=== PATIENT | male | born 2005 | race African-American/Black ===

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

== ENCOUNTER 2023-02-07 21:32 | Emergency (ER) | payer BC ==
[2023-02-07 22:53] LABS: SARS-CoV-2 NAA Rapid Test Not Detected (NotDetected)
== END 2023-02-07 23:00 | disposition home or self-care (01) ==
LOC: CSHERS 21:32
DX: B34.9 Viral infection, unspecified (principal); K60.2 Anal fissure, unspecified; L50.1 Idiopathic urticaria; Z20.822 Contact with and (suspected) exposure to COVID-19; Z79.899 Other long term (current) drug therapy
CPT/HCPCS: 99284

== ENCOUNTER 2023-02-27 02:26 | Emergency (ER) | payer BC ==
[2023-02-27] MEDS ORDERED: Ibuprofen 200 MG TAB ONE (03:23)
[2023-02-27 03:40] LABS: #Eosinphils 0.2 10x3/uL (0.0-0.5); #Monocytes 0.6 10x3/uL (0.0-1.1); #Neutrophils 2.7 10x3/uL (1.5-8.4); %Basophils 0.6 % (0.0-2.0); %Eosinophils 2.4 % (0.0-6.0); %Lymphocytes 47.2 % (18.0-47.0); %Monocytes 9.3 % (0.0-10.0); %Neutrophils 40.2 % (40.0-75.0); Hematocrit 27.4 % (38.8-50.0); Hemoglobin 9.9 g/dL (13.5-17.5); Mean Corpuscular HGB CONC 36.1 g/dL (32.0-36.0); Mean Corpuscular Hemoglobin 38.1 pg (27.0-33.0); Mean Corpuscular Volume 105.4 fl (81.2-95.1); Mean Platelet Volume 8.7 fl (7.4-10.4); Platelet Count 407 10x3/uL (150-450); RBC Distribution Width 14.9 % (11.5-14.5); White Blood Cell (WBC) Count 6.7 10x3/uL (3.5-10.5)
[2023-02-27 03:48] LABS: ALT (SGPT) 22 U/L (8-55); AST (SGOT) 28 U/L (10-45); Albumin 4.1 g/dL (3.5-5.0); Alkaline Phosphatase 108 U/L (50-130); Anion Gap 13 mmol/L (10-20); BUN (Urea Nitrogen) 8 mg/dL (8.4-21.0); Bilirubin, Total 0.7 mg/dL (0.2-1.2); Calc. Creatinine Clearance 0 mL/min (70-130); Calcium 8.9 mg/dL (7.8-10.44); Carbon Dioxide 26 mmol/L (22-29); Chloride 104 mmol/L (98-107); Estimated GFR 136; Globulin 3.8 g/dL (2.4-3.5); Glucose 92 mg/dL (70-105); Potassium 4.7 mmol/L (3.5-5.1); Protein, Total 7.9 g/dL (6.0-8.3); Sodium 138 mmol/L (136-145)
== END 2023-02-27 04:38 | disposition home or self-care (01) ==
LOC: CSHERS 02:26
DX: D57.1 Sickle-cell disease without crisis (principal)
CPT/HCPCS: 36415; 80053; 85025; 85046; 99283

== ENCOUNTER 2023-04-02 09:02 | Emergency (ER) | payer BC, OTHER ==
[2023-04-02 09:54] LABS: Hematocrit 27.7 % (38.8-50.0); Hemoglobin 9.8 g/dL (13.5-17.5); Mean Corpuscular HGB CONC 35.4 g/dL (32.0-36.0); Mean Corpuscular Volume 98.9 fl (81.2-95.1); Mean Platelet Volume 9.1 fl (7.4-10.4); Platelet Count 525 10x3/uL (150-450); RBC Distribution Width 15.8 % (11.5-14.5); White Blood Cell (WBC) Count 11.6 10x3/uL (3.5-10.5)
[2023-04-02] MEDS ORDERED: Morphine 4 MG/ML VIAL ONE ×3 (09:54→12:08)
[2023-04-02] MEDS ORDERED: Ketorolac Tromethamine 30 MG/ML VIAL ONE (09:54)
[2023-04-02 10:14] LABS: #Basophils 0.1 10x3/uL (0.0-0.2); #Eosinphils 0.1 10x3/uL (0.0-0.5); #Monocytes 0.9 10x3/uL (0.0-1.1); #Neutrophils 3.7 10x3/uL (1.5-8.4); %Basophils 0.4 % (0.0-2.0); %Eosinophils 0.6 % (0.0-6.0); %Lymphocytes 58.1 % (18.0-47.0); %Monocytes 7.9 % (0.0-10.0); %Neutrophils 32.1 % (40.0-75.0)
[2023-04-02 10:18] LABS: Band 1 % (5-11); Lymphocytes 60 % (28-48); Monocytes 4 % (0-4); Reactive Lymphocytes 4 % (0-10)
[2023-04-02 10:19] LABS: Anisocytosis SLIGHT = 6-15 cells (100X) (0-5/hpf); Neutrophil 31 % (31-61); Poikilocytosis SLIGHT = 6-15 cells (100X) (0-5/hpf)
[2023-04-02 10:20] LABS: Hypochromia SLIGHT = 6-15 cells (100X) (0-5/hpf); Macrocytosis SLIGHT = 6-15 cells (100X) (0-5/hpf); Ovalocytes SLIGHT = 2-5 cells (100X) (0-1/hpf); Polychromasia SLIGHT = 2-3 cells (100X) (0-2/hpf)
[2023-04-02 10:21] LABS: Platelet Adequacy Comment Appears Increased
[2023-04-02 10:42] LABS: ALT (SGPT) 8 U/L (8-55); AST (SGOT) 20 U/L (10-45); Alkaline Phosphatase 94 U/L (50-130); Anion Gap 15 mmol/L (10-20); BUN (Urea Nitrogen) 7 mg/dL (8.4-21.0); Bilirubin, Total 0.9 mg/dL (0.2-1.2); Calc. Creatinine Clearance 0 mL/min (70-130); Calcium 9.3 mg/dL (7.8-10.44); Carbon Dioxide 24 mmol/L (22-29); Chloride 103 mmol/L (98-107); Estimated GFR 132; Globulin 4.2 g/dL (2.4-3.5); Glucose 94 mg/dL (70-105); Magnesium 1.8 mg/dL (1.7-2.2); Potassium 4.1 mmol/L (3.5-5.1); Protein, Total 8.2 g/dL (6.0-8.3); Sodium 138 mmol/L (136-145)
[2023-04-02] MEDS ORDERED: HYDROmorphone 0.5 MG/0.5 ML SYRINGE ONE (12:14)
== END 2023-04-02 13:38 | disposition home or self-care (01) ==
LOC: CSHERS 09:02
DX: D57.00 Hb-SS disease with crisis, unspecified (principal)
CPT/HCPCS: 80053; 83735; 85025; 85046; 96374; 96375; 96376; J1170; J1885; J2270

== ENCOUNTER 2023-05-26 18:52 | Inpatient (IN) | payer BC ==
[2023-05-26] MEDS ORDERED: Morphine 4 MG/ML VIAL ONE ×2 (19:45→20:32)
[2023-05-26] MEDS ORDERED: Ketorolac Tromethamine 30 MG/ML VIAL ONE (19:45)
[2023-05-26 19:55] LABS: Hematocrit 28.1 % (38.8-50.0); Hemoglobin 10.2 g/dL (13.5-17.5); Mean Corpuscular HGB CONC 36.3 g/dL (32.0-36.0); Mean Corpuscular Hemoglobin 34.6 pg (27.0-33.0); Mean Corpuscular Volume 95.3 fl (81.2-95.1); Mean Platelet Volume 9.2 fl (7.4-10.4); Platelet Count 722 10x3/uL (150-450); RBC Distribution Width 17.1 % (11.5-14.5); Red Blood Cell (RBC) Count 2.95 10x6/uL (4.32-5.72); White Blood Cell (WBC) Count 13.6 10x3/uL (3.5-10.5)
[2023-05-26 19:58] LABS: ALT (SGPT) 9 U/L (8-55); AST (SGOT) 21 U/L (10-45); Albumin 4.5 g/dL (3.5-5.0); Alkaline Phosphatase 95 U/L (50-130); Anion Gap 16 mmol/L (10-20); BUN (Urea Nitrogen) 8 mg/dL (8.4-21.0); Bilirubin, Total 1.2 mg/dL (0.2-1.2); Calc. Creatinine Clearance 0 mL/min (70-130); Calcium 9.5 mg/dL (7.8-10.44); Carbon Dioxide 21 mmol/L (22-29); Chloride 105 mmol/L (98-107); Estimated GFR 131; Globulin 4.2 g/dL (2.4-3.5); Glucose 94 mg/dL (70-105); Potassium 3.9 mmol/L (3.5-5.1); Protein, Total 8.7 g/dL (6.0-8.3); Sodium 138 mmol/L (136-145)
[2023-05-26 20:12] LABS: Eosinophils 2 % (0-10); Lymphocytes 61 % (28-48); Metamyelocyte 1 % (0-0); Monocytes 7 % (0-4)
[2023-05-26 20:13] LABS: Target Cells MARKED = >16 cells (100X) (0-1/hpf)
[2023-05-26 20:14] LABS: Polychromasia SLIGHT = 2-3 cells (100X) (0-2/hpf); Tear Drops SLIGHT = 2-5 cells (100X) (0-1/hpf)
[2023-05-26 20:15] LABS: Platelet Adequacy Comment Appears Increased
[2023-05-26] MEDS ORDERED: HYDROmorphone 0.5 MG/0.5 ML SYRINGE ONE ×2 (21:41→23:53)
[2023-05-27] MEDS ORDERED: HYDROmorphone 0.5 MG/0.5 ML SYRINGE ONE (01:52)
[2023-05-27] MEDS ORDERED: Ondansetron PF 4 MG/2 ML Vial ONE (03:03)
[2023-05-27] MEDS ORDERED: Calcium Carbonate 500 MG ChewTAB PO PRN (03:11)
[2023-05-27] MEDS ORDERED: Senokot S 8.6-50 MG TAB PO PRN (03:11)
[2023-05-27] MEDS ORDERED: HYDROcodone/Acetaminophen 5/325 mg Tablet PO PRN (03:11)
[2023-05-27] MEDS ORDERED: Guaifenesin DM 100-10/5 ML UDCUP PO PRN (03:11)
[2023-05-27] MEDS ORDERED: Ondansetron PF 4 MG/2 ML Vial IVP PRN ×2 (03:11→04:51)
[2023-05-27] MEDS ORDERED: Morphine 4 MG/ML VIAL SLOW IVP PRN (03:15)
[2023-05-27] MEDS ORDERED: Morphine 2 MG/ML VIAL SLOW IVP PRN (03:15)
[2023-05-27 03:18] VITALS: BMI 22.0
[2023-05-27] MEDS ORDERED: Lactated Ringer's 1,000 ML IV SCH ×2 (03:30→11:15)
[2023-05-27] MEDS ORDERED: oxyCODONE ER 10 MG TAB PO SCH ×2 (04:00→09:00)
[2023-05-27] MEDS: Ketorolac Tromethamine 30 MG/ML VIAL IVP SCH ×2 (04:06→10:06)
[2023-05-27] MEDS: Lidocaine 4% Patch TD SCH (04:07)
[2023-05-27] MEDS ORDERED: Promethazine HCl 25 MG/ML VIAL IM PRN (04:51)
[2023-05-27] MEDS ORDERED: FENTANYL 500 MCG/10 ML VIAL 2,000 MCG in Sodium Chloride 0.9% 60 ML IV PRN (04:51)
[2023-05-27] MEDS ORDERED: diphenhydrAMINE 50 MG/ML VIAL IVP PRN (04:51)
[2023-05-27] MEDS ORDERED: diphenhydrAMINE 25 MG CAP PO PRN (04:51)
[2023-05-27] MEDS ORDERED: diphenhydrAMINE 50 MG/ML VIAL IM PRN (04:51)
[2023-05-27] MEDS ORDERED: Naloxone HCl 0.4 mg/ml Vial IV PRN (04:51)
[2023-05-27] MEDS ORDERED: Communication Order-Pharmacy FS SCH (05:00)
[2023-05-27] MEDS ORDERED: FENTANYL 500 MCG/10 ML VIAL 1,000 MCG in Sodium Chloride 0.9% 30 ML IV PRN (05:00)
[2023-05-27] MEDS ORDERED: Ketorolac Tromethamine 30 MG/ML VIAL IVP SCH (06:00)
[2023-05-27] MEDS: Folic Acid 1 MG TAB PO SCH (08:25)
[2023-05-27] MEDS: Cyanocobalamin (Vitamin B-12) 1,000 MCG TAB PO SCH (08:25)
[2023-05-27] MEDS ORDERED: Lidocaine 4% Patch TD SCH (09:00)
[2023-05-27 10:47] LABS: #Basophils 0.1 10x3/uL (0.0-0.2); #Eosinphils 0.2 10x3/uL (0.0-0.5); #Monocytes 1.1 10x3/uL (0.0-1.1); #Neutrophils 14.8 10x3/uL (1.5-8.4); %Basophils 0.4 % (0.0-2.0); %Eosinophils 1.1 % (0.0-6.0); %Lymphocytes 14.6 % (18.0-47.0); %Monocytes 5.6 % (0.0-10.0); %Neutrophils 77.4 % (40.0-75.0); Hemoglobin 9.2 g/dL (13.5-17.5); Mean Corpuscular HGB CONC 35.4 g/dL (32.0-36.0); Mean Corpuscular Hemoglobin 34.1 pg (27.0-33.0); Mean Corpuscular Volume 96.3 fl (81.2-95.1); Mean Platelet Volume 8.9 fl (7.4-10.4); Platelet Count 576 10x3/uL (150-450); RBC Distribution Width 17.1 % (11.5-14.5); White Blood Cell (WBC) Count 19.1 10x3/uL (3.5-10.5)
[2023-05-27 10:56] LABS: Anion Gap 12 mmol/L (10-20); BUN (Urea Nitrogen) 7 mg/dL (8.4-21.0); Calc. Creatinine Clearance 156 mL/min (70-130); Calcium 8.5 mg/dL (7.8-10.44); Carbon Dioxide 22 mmol/L (22-29); Chloride 107 mmol/L (98-107); Estimated GFR 136; Glucose 91 mg/dL (70-105); Potassium 3.7 mmol/L (3.5-5.1); Sodium 137 mmol/L (136-145)
[2023-05-27] MEDS: Sodium Chloride 0.9% 1,000 ML IV SCH (11:38)
[2023-05-27] MEDS: Hydroxyurea 500 MG CAP PO SCH (11:38)
[2023-05-27] MEDS ORDERED: cefTRIAXone\\ROCEPHIN 1 GM in Sodium Chloride 0.9% 100 ML IVPB SCH (12:00)
[2023-05-27] MEDS ORDERED: Azithromycin 500 MG in Sodium Chloride 0.9% 250 ML 250 ML IVPB SCH (12:30)
[2023-05-27 16:40] LABS: Bilirubin Neg (Negative); Blood, Urine Negative (Negative); Clarity Clear (Clear); Glucose, Urine (Dipstick) Normal (Negative); Ketone, Urine Negative (Negative); Leukocyte Negative (Negative); Nitrite Negative (Negative); Protein, Urine (Dipstick) Negative (Neg-Trace); Specific Gravity, Urine 1.015 (1.005-1.030); Urobilinogen Normal mg/dL (Less than 2)
[2023-05-27 16:47] LABS: Amphetamine Not Detected (NotDetected); Barbiturates Screen Not Detected (NotDetected); Benzodiazepine Screen Not Detected (NotDetected); Cocaine Metabolite Screen Not Detected (NotDetected); Methadone Not Detected (NotDetected); Methamphetamine Not Detected (NotDetected); Opiate Screen Detected (NotDetected); Oxycodone Screen Detected (NotDetected); Phencyclidine (PCP) Not Detected (NotDetected); THC/Cannabinoid Screen Not Detected (NotDetected); Tricyclic Screen Not Detected (NotDetected)
[2023-05-27 17:58] LABS: Bacteria/HPF Rare-Few HPF (None Seen); RBC/HPF None Seen HPF (0-3); Squamous Epithelial 0-3 HPF (0-3); WBC/HPF 0-3 HPF (0-3)
[2023-05-27] MEDS ORDERED: LIDOCAINE Patch Removal TOP SCH (21:00)
[2023-05-27] MEDS: LIDOCAINE Patch Removal TOP SCH (21:08)
[2023-05-27] MEDS: Acetaminophen 325 MG TAB PO PRN (23:34)
[2023-05-28] MEDS: Sodium Chloride 0.9% 1,000 ML IV SCH ×3 (01:24→17:30)
[2023-05-28 03:43] LABS: #Basophils 0.1 10x3/uL (0.0-0.2); #Eosinphils 0.3 10x3/uL (0.0-0.5); #Monocytes 0.9 10x3/uL (0.0-1.1); %Basophils 0.5 % (0.0-2.0); %Eosinophils 1.7 % (0.0-6.0); %Lymphocytes 23.5 % (18.0-47.0); %Monocytes 4.6 % (0.0-10.0); %Neutrophils 69.2 % (40.0-75.0); Hematocrit 26.7 % (38.8-50.0); Hemoglobin 9.5 g/dL (13.5-17.5); Mean Corpuscular HGB CONC 35.6 g/dL (32.0-36.0); Mean Corpuscular Hemoglobin 32.4 pg (27.0-33.0); Mean Corpuscular Volume 91.1 fl (81.2-95.1); Mean Platelet Volume 8.8 fl (7.4-10.4); Platelet Count 534 10x3/uL (150-450); RBC Distribution Width 19.8 % (11.5-14.5); Red Blood Cell (RBC) Count 2.93 10x6/uL (4.32-5.72); White Blood Cell (WBC) Count 18.8 10x3/uL (3.5-10.5)
[2023-05-28 04:15] LABS: Anion Gap 14 mmol/L (10-20); BUN (Urea Nitrogen) 7 mg/dL (8.4-21.0); Calc. Creatinine Clearance 160 mL/min (70-130); Calcium 8.5 mg/dL (7.8-10.44); Carbon Dioxide 19 mmol/L (22-29); Chloride 104 mmol/L (98-107); Estimated GFR 137; Glucose 82 mg/dL (70-105); Potassium 3.5 mmol/L (3.5-5.1); Sodium 133 mmol/L (136-145)
[2023-05-28] MEDS: Lidocaine 4% Patch TD SCH (05:04)
[2023-05-28] MEDS ORDERED: Piperacillin/Tazobactam 3.375 GM in Sodium Chloride 0.9% 100 ML IVPB SCH (09:00)
[2023-05-28] MEDS ORDERED: VANCOMYCIN 1.25 GM/250 ML BAG 1.25 GM in Premix 1 BAG IVPB SCH ×2 (09:00→12:45)
[2023-05-28] MEDS ORDERED: Vancomycin 1.5 GRAM/300 ML BAG IVPB SCH (09:00)
[2023-05-28] MEDS: Cyanocobalamin (Vitamin B-12) 1,000 MCG TAB PO SCH (09:27)
[2023-05-28] MEDS: Folic Acid 1 MG TAB PO SCH (09:27)
[2023-05-28] MEDS: Hydroxyurea 500 MG CAP PO SCH (09:28)
[2023-05-28 10:04] LABS: Vancomycin, Trough Less than 1.1 ug/mL
[2023-05-28] MEDS ORDERED: Magnevist 469MG/ML 20 ML VIAL ONE (12:50)
[2023-05-28] MEDS: Piperacillin/Tazobactam 3.375 GM in Sodium Chloride 0.9% 100 ML IVPB SCH ×2 (16:19→20:57)
[2023-05-28] MEDS: LIDOCAINE Patch Removal TOP SCH (16:26)
[2023-05-28] MEDS: Acetaminophen 325 MG TAB PO PRN (20:55)
[2023-05-28] MEDS: Vancomycin 1 GM in Sodium Chloride 0.9% 250 ML 250 ML IVPB SCH (20:56)
[2023-05-29] MEDS: Lidocaine 4% Patch TD SCH (05:14)
[2023-05-29] MEDS: Sodium Chloride 0.9% 1,000 ML IV SCH ×3 (05:14→22:43)
[2023-05-29] MEDS: Vancomycin 1 GM in Sodium Chloride 0.9% 250 ML 250 ML IVPB SCH (06:36)
[2023-05-29] MEDS: Piperacillin/Tazobactam 3.375 GM in Sodium Chloride 0.9% 100 ML IVPB SCH ×3 (06:38→22:43)
[2023-05-29] MEDS: Folic Acid 1 MG TAB PO SCH (09:05)
[2023-05-29] MEDS: Cyanocobalamin (Vitamin B-12) 1,000 MCG TAB PO SCH (09:05)
[2023-05-29] MEDS: Hydroxyurea 500 MG CAP PO SCH (09:06)
[2023-05-29 09:29] LABS: #Basophils 0.1 10x3/uL (0.0-0.2); #Eosinphils 0.5 10x3/uL (0.0-0.5); #Monocytes 0.9 10x3/uL (0.0-1.1); #Neutrophils 7.6 10x3/uL (1.5-8.4); %Basophils 0.4 % (0.0-2.0); %Eosinophils 3.7 % (0.0-6.0); %Monocytes 6.8 % (0.0-10.0); %Neutrophils 57.5 % (40.0-75.0); Hematocrit 27.9 % (38.8-50.0); Hemoglobin 9.9 g/dL (13.5-17.5); Mean Corpuscular HGB CONC 35.5 g/dL (32.0-36.0); Mean Corpuscular Hemoglobin 32.1 pg (27.0-33.0); Mean Corpuscular Volume 90.6 fl (81.2-95.1); Mean Platelet Volume 8.8 fl (7.4-10.4); Platelet Count 498 10x3/uL (150-450); RBC Distribution Width 18.7 % (11.5-14.5); Red Blood Cell (RBC) Count 3.08 10x6/uL (4.32-5.72); White Blood Cell (WBC) Count 13.2 10x3/uL (3.5-10.5)
[2023-05-29 10:16] LABS: Anion Gap 12 mmol/L (10-20); BUN (Urea Nitrogen) 5 mg/dL (8.4-21.0); Calc. Creatinine Clearance 160 mL/min (70-130); Calcium 9.1 mg/dL (7.8-10.44); Carbon Dioxide 25 mmol/L (22-29); Chloride 106 mmol/L (98-107); Estimated GFR 137; Glucose 85 mg/dL (70-105); Sodium 139 mmol/L (136-145)
[2023-05-29 12:42] LABS: Vancomycin, Trough 10.4 ug/mL
[2023-05-29] MEDS: Vancomycin 1.5 GRAM/300 ML BAG 1.5 GM in Premix 1 BAG IVPB SCH ×2 (14:00→21:18)
[2023-05-29] MEDS: LIDOCAINE Patch Removal TOP SCH (16:22)
[2023-05-30] MEDS: Vancomycin 1.5 GRAM/300 ML BAG 1.5 GM in Premix 1 BAG IVPB SCH (05:05)
[2023-05-30] MEDS ORDERED: Piperacillin/Tazobactam 3.375 GM in Sodium Chloride 0.9% 100 ML IVPB SCH (08:00)
[2023-05-30 10:33] VITALS: BP 118/64; TEMP 97.9
== END 2023-05-30 08:50 | disposition home or self-care (01) | DRG 811 ==
LOC: CSHERS 18:52 → CSHTELE 05-27 03:06 → OBSVTOIN 05-27 03:10
PROVIDERS: ADMIT Student in an Organized Health Care Education/Training Program; ATTEND Hospitalist
DX: D57.00 Hb-SS disease with crisis, unspecified (principal); A41.9 Sepsis, unspecified organism; M87.9 Osteonecrosis, unspecified; D53.9 Nutritional anemia, unspecified; D69.6 Thrombocytopenia, unspecified; F90.9 Attention-deficit hyperactivity disorder, unspecified type; M54.6 Pain in thoracic spine; Z79.899 Other long term (current) drug therapy; Z90.89 Acquired absence of other organs; Z87.891 Personal history of nicotine dependence
CPT/HCPCS: 36415; 36430; 71045; 72148; 72156; 72157; 80048; 80053; 80202; 80306; 81001; 85025; 85046; 86850; 86900; 86901; 87040; A9579; J0456; J0696; J1170; J1650; J1885; J2270; J2405; J2543; J3010; J3370; J3490; J7050; J7120; P9016

== ENCOUNTER 2023-07-05 05:57 | Emergency (ER) | payer BC ==
[2023-07-05] MEDS ORDERED: Ketorolac Tromethamine 30 MG (1 mL) VIAL ONE (06:58)
[2023-07-05 07:21] LABS: Hematocrit 27.1 % (38.8-50.0); Hemoglobin 9.6 g/dL (13.5-17.5); Mean Corpuscular HGB CONC 35.4 g/dL (32.0-36.0); Mean Corpuscular Hemoglobin 35.2 pg (27.0-33.0); Mean Corpuscular Volume 99.3 fl (81.2-95.1); Platelet Count 622 10x3/uL (150-450); RBC Distribution Width 22.6 % (11.5-14.5); Red Blood Cell (RBC) Count 2.73 10x6/uL (4.32-5.72); White Blood Cell (WBC) Count 17.3 10x3/uL (3.5-10.5)
[2023-07-05] MEDS ORDERED: Morphine 4 MG/ML VIAL ONE ×2 (07:24→08:22)
[2023-07-05 07:36] LABS: ALT (SGPT) 11 U/L (8-55); AST (SGOT) 25 U/L (5-34); Albumin 4.6 g/dL (3.5-5.0); Alkaline Phosphatase 97 U/L (50-130); Anion Gap 15 mmol/L (10-20); BUN (Urea Nitrogen) 13 mg/dL (8.9-20.6); Bilirubin, Total 1.7 mg/dL (0.2-1.2); Calc. Creatinine Clearance 0 mL/min (70-130); Calcium 9.2 mg/dL (7.8-10.44); Carbon Dioxide 23 mmol/L (22-29); Chloride 105 mmol/L (98-107); Estimated GFR 127; Globulin 3.5 g/dL (2.4-3.5); Glucose 92 mg/dL (70-105); Potassium 3.9 mmol/L (3.5-5.1); Protein, Total 8.1 g/dL (6.0-8.3); Sodium 139 mmol/L (136-145)
[2023-07-05 07:50] LABS: MDiff Complete? YES; Platelet Adequacy Comment Appears Increased
[2023-07-05 07:51] LABS: Anisocytosis SLIGHT = 6-15 cells (100X) (0-5/hpf)
[2023-07-05 08:08] LABS: Eosinophils 3 % (0-10); Lymphocytes 36 % (28-48); Monocytes 7 % (0-4); Neutrophil 48 % (31-61); Reactive Lymphocytes 6 % (0-10)
[2023-07-05 08:11] LABS: Target Cells SLIGHT = 2-5 cells (100X) (0-1/hpf)
[2023-07-05 08:13] LABS: Macrocytosis SLIGHT = 6-15 cells (100X) (0-5/hpf)
[2023-07-05] MEDS ORDERED: Acetaminophen 500 MG TAB ONE (08:22)
[2023-07-05] MEDS ORDERED: Ondansetron PF 4 MG/2 ML Vial IVP PRN (15:29)
[2023-07-05] MEDS ORDERED: Enoxaparin 30 MG (0.3 mL) SYRINGE SC SCH (15:30)
[2023-07-05] MEDS ORDERED: HYDROmorphone 0.5 MG/0.5 ML SYRINGE SLOW IVP PRN (15:32)
[2023-07-05] MEDS ORDERED: Dextrose 5 %-0.45 % NaCl 1,000 ML IV SCH (15:45)
[2023-07-05] MEDS ORDERED: Ketorolac Tromethamine 30 MG (1 mL) VIAL IVP SCH (15:45)
[2023-07-05] MEDS ORDERED: Senokot S 8.6-50 MG TAB PO SCH (21:00)
[2023-07-06] MEDS ORDERED: Enoxaparin 30 MG (0.3 mL) SYRINGE SC SCH (09:00)
[2023-07-06] MEDS ORDERED: Hydroxyurea 500 MG CAP PO SCH (09:00)
== END 2023-07-05 09:01 | disposition home or self-care (01) ==
LOC: CSHERS 05:57
DX: D57.00 Hb-SS disease with crisis, unspecified (principal); D64.9 Anemia, unspecified
CPT/HCPCS: 71045; 80053; 85025; 85046; 93005; 96361; 96374; 96375; 96376; J1885; J2270

== ENCOUNTER 2023-07-05 12:57 | Inpatient (IN) | payer BC ==
[2023-07-05] MEDS ORDERED: Ondansetron PF 4 MG/2 ML Vial ONE (13:13)
[2023-07-05] MEDS ORDERED: Morphine 4 MG/ML VIAL ONE (13:13)
[2023-07-05] MEDS ORDERED: HYDROmorphone 0.5 MG/0.5 ML SYRINGE ONE ×3 (13:57→16:13)
[2023-07-05] MEDS ORDERED: Senokot S 8.6-50 MG TAB PO PRN (15:42)
[2023-07-05] MEDS ORDERED: HYDROmorphone 0.5 MG/0.5 ML SYRINGE SLOW IVP SCH ×2 (16:00)
[2023-07-05] MEDS ORDERED: Ketorolac Tromethamine 30 MG (1 mL) VIAL IVP SCH ×2 (16:00→21:45)
[2023-07-05] MEDS ORDERED: Ketorolac Tromethamine 30 MG (1 mL) VIAL ONE (16:14)
[2023-07-05] MEDS: Dextrose 5 %-0.45 % NaCl 1,000 ML IV SCH ×2 (16:24→23:54)
[2023-07-05] MEDS ORDERED: fentaNYL 50 mcg/mL 1 mL Vial SLOW IVP PRN (17:33)
[2023-07-05 20:07] VITALS: BMI 20.7
[2023-07-05] MEDS ORDERED: HYDROmorphone 0.5 MG/0.5 ML SYRINGE SLOW IVP PRN (20:57)
[2023-07-05] MEDS ORDERED: diphenhydrAMINE 50 MG/ML VIAL IM PRN (22:47)
[2023-07-05] MEDS ORDERED: diphenhydrAMINE 25 MG CAP PO PRN (22:47)
[2023-07-05] MEDS ORDERED: Ondansetron PF 4 MG/2 ML Vial IVP PRN (22:47)
[2023-07-05] MEDS ORDERED: Promethazine HCl 25 MG/ML VIAL IM PRN (22:47)
[2023-07-05] MEDS ORDERED: HYDROmorphone/PF 10 MG in Sodium Chloride 0.9% 99 ML IV PRN (22:47)
[2023-07-05] MEDS ORDERED: diphenhydrAMINE 50 MG/ML VIAL IVP PRN (22:47)
[2023-07-05] MEDS ORDERED: Naloxone HCl 0.4 mg/ml Vial IV PRN (22:47)
[2023-07-05] MEDS ORDERED: Communication Order-Pharmacy FS SCH (23:00)
[2023-07-05] MEDS: HYDROmorphone/PF 10 MG in Sodium Chloride 0.9% 49 ML IVPB PRN (23:22)
[2023-07-06 07:11] LABS: #Eosinphils 0.1 10x3/uL (0.0-0.5); #Neutrophils 10.9 10x3/uL (1.5-8.4); %Basophils 0.3 % (0.0-2.0); %Eosinophils 0.5 % (0.0-6.0); %Lymphocytes 20.2 % (18.0-47.0); %Monocytes 6.4 % (0.0-10.0); Hematocrit 24.8 % (38.8-50.0); Hemoglobin 9.1 g/dL (13.5-17.5); Mean Corpuscular HGB CONC 36.7 g/dL (32.0-36.0); Mean Corpuscular Hemoglobin 35.1 pg (27.0-33.0); Mean Corpuscular Volume 95.8 fl (81.2-95.1); Mean Platelet Volume 8.7 fl (7.4-10.4); Platelet Count 537 10x3/uL (150-450); RBC Distribution Width 21.2 % (11.5-14.5); Red Blood Cell (RBC) Count 2.59 10x6/uL (4.32-5.72); White Blood Cell (WBC) Count 15.1 10x3/uL (3.5-10.5)
[2023-07-06 07:23] LABS: Anion Gap 11 mmol/L (10-20); BUN (Urea Nitrogen) 6 mg/dL (8.9-20.6); Calc. Creatinine Clearance 0 mL/min (70-130); Calcium 8.2 mg/dL (7.8-10.44); Carbon Dioxide 24 mmol/L (22-29); Chloride 104 mmol/L (98-107); Estimated GFR 136; Glucose 116 mg/dL (70-105); Potassium 3.5 mmol/L (3.5-5.1); Sodium 135 mmol/L (136-145)
[2023-07-06] MEDS ORDERED: Hydroxyurea 500 MG CAP PO SCH (09:00)
[2023-07-06] MEDS: Dextrose 5 %-0.45 % NaCl 1,000 ML IV SCH ×2 (09:19→16:47)
[2023-07-06] MEDS: Folic Acid 1 MG TAB PO SCH (09:19)
[2023-07-06] MEDS: Enoxaparin 30 MG (0.3 mL) SYRINGE SC SCH (09:19)
[2023-07-06] MEDS: Acetaminophen 325 MG TAB PO PRN (09:33)
[2023-07-06] MEDS ORDERED: LevoFLOXacin 500 mg/D5W 500 MG in Premix 1 BAG IVPB SCH (10:15)
[2023-07-06] MEDS: Ketorolac Tromethamine 30 MG (1 mL) VIAL IVP PRN (22:44)
[2023-07-06] MEDS: HYDROmorphone/PF 10 MG in Sodium Chloride 0.9% 49 ML IVPB PRN (22:45)
[2023-07-07] MEDS: Dextrose 5 %-0.45 % NaCl 1,000 ML IV SCH ×3 (01:00→23:03)
[2023-07-07] MEDS: Acetaminophen 325 MG TAB PO PRN ×2 (04:28→20:25)
[2023-07-07 08:04] LABS: #Eosinphils 0.1 10x3/uL (0.0-0.5); #Neutrophils 8.5 10x3/uL (1.5-8.4); %Basophils 0.3 % (0.0-2.0); %Eosinophils 0.6 % (0.0-6.0); %Lymphocytes 29.6 % (18.0-47.0); %Monocytes 7.5 % (0.0-10.0); %Neutrophils 61.5 % (40.0-75.0); Hematocrit 23.3 % (38.8-50.0); Hemoglobin 8.3 g/dL (13.5-17.5); Mean Corpuscular HGB CONC 35.6 g/dL (32.0-36.0); Mean Corpuscular Hemoglobin 34.2 pg (27.0-33.0); Mean Corpuscular Volume 95.9 fl (81.2-95.1); Mean Platelet Volume 8.8 fl (7.4-10.4); Platelet Count 488 10x3/uL (150-450); RBC Distribution Width 20.4 % (11.5-14.5); Red Blood Cell (RBC) Count 2.43 10x6/uL (4.32-5.72); White Blood Cell (WBC) Count 13.9 10x3/uL (3.5-10.5)
[2023-07-07 08:05] LABS: ALT (SGPT) 11 U/L (8-55); AST (SGOT) 15 U/L (5-34); Albumin 3.5 g/dL (3.5-5.0); Alkaline Phosphatase 82 U/L (50-130); Anion Gap 12 mmol/L (10-20); BUN (Urea Nitrogen) 7 mg/dL (8.9-20.6); Bilirubin, Total 2.2 mg/dL (0.2-1.2); Calc. Creatinine Clearance 152 mL/min (70-130); Calcium 8.2 mg/dL (7.8-10.44); Carbon Dioxide 24 mmol/L (22-29); Chloride 104 mmol/L (98-107); Estimated GFR 134; Globulin 2.8 g/dL (2.4-3.5); Glucose 116 mg/dL (70-105); Potassium 3.7 mmol/L (3.5-5.1); Protein, Total 6.3 g/dL (6.0-8.3); Sodium 136 mmol/L (136-145)
[2023-07-07] MEDS ORDERED: LevoFLOXacin D5W 500 mg (100 mL) BAG ONE (09:59)
[2023-07-07] MEDS: Hydroxyurea 500 MG CAP PO SCH (10:00)
[2023-07-07] MEDS: Folic Acid 1 MG TAB PO SCH (10:00)
[2023-07-07] MEDS: Enoxaparin 30 MG (0.3 mL) SYRINGE SC SCH (10:00)
[2023-07-07] MEDS: PATIENT'S HOME MEDICATION PO SCH (10:02)
[2023-07-07] MEDS ORDERED: LevoFLOXacin 500 mg/D5W 500 MG in Premix 1 BAG IVPB SCH (10:15)
[2023-07-07] MEDS: Ketorolac Tromethamine 30 MG (1 mL) VIAL IVP PRN (12:50)
[2023-07-08] MEDS: Ketorolac Tromethamine 30 MG (1 mL) VIAL IVP PRN ×2 (03:06→10:39)
[2023-07-08] MEDS: Acetaminophen 325 MG TAB PO PRN ×2 (03:59→21:32)
[2023-07-08] MEDS: VANCOMYCIN 1.25 GM/250 ML BAG 1.25 GM in Premix 1 BAG IVPB SCH ×3 (04:00→21:15)
[2023-07-08] MEDS: Dextrose 5 %-0.45 % NaCl 1,000 ML IV SCH ×3 (04:01→23:04)
[2023-07-08 04:16] LABS: Lactic Acid 0.9 mmol/L (0.5-2.2)
[2023-07-08 04:20] LABS: #Eosinphils 0.1 10x3/uL (0.0-0.5); #Neutrophils 7.2 10x3/uL (1.5-8.4); %Basophils 0.4 % (0.0-2.0); %Eosinophils 1.3 % (0.0-6.0); %Lymphocytes 23.5 % (18.0-47.0); %Neutrophils 65.3 % (40.0-75.0); Hematocrit 21.3 % (38.8-50.0); Hemoglobin 7.6 g/dL (13.5-17.5); Mean Corpuscular HGB CONC 35.7 g/dL (32.0-36.0); Mean Corpuscular Hemoglobin 33.9 pg (27.0-33.0); Mean Corpuscular Volume 95.1 fl (81.2-95.1); Mean Platelet Volume 8.9 fl (7.4-10.4); Platelet Count 422 10x3/uL (150-450); RBC Distribution Width 19.7 % (11.5-14.5); Red Blood Cell (RBC) Count 2.24 10x6/uL (4.32-5.72)
[2023-07-08 04:26] LABS: ALT (SGPT) 8 U/L (8-55); AST (SGOT) 12 U/L (5-34); Albumin 3.3 g/dL (3.5-5.0); Alkaline Phosphatase 71 U/L (50-130); Anion Gap 11 mmol/L (10-20); BUN (Urea Nitrogen) 8 mg/dL (8.9-20.6); Bilirubin, Total 1.7 mg/dL (0.2-1.2); Calc. Creatinine Clearance 157 mL/min (70-130); Calcium 8.2 mg/dL (7.8-10.44); Carbon Dioxide 24 mmol/L (22-29); Chloride 105 mmol/L (98-107); Estimated GFR 135; Globulin 2.7 g/dL (2.4-3.5); Glucose 99 mg/dL (70-105); Potassium 3.8 mmol/L (3.5-5.1); Sodium 136 mmol/L (136-145)
[2023-07-08] MEDS: Folic Acid 1 MG TAB PO SCH (09:22)
[2023-07-08] MEDS: PATIENT'S HOME MEDICATION PO SCH (09:23)
[2023-07-08] MEDS: Enoxaparin 30 MG (0.3 mL) SYRINGE SC SCH (09:23)
[2023-07-08] MEDS: LevoFLOXacin 750 mg/D5W 750 MG in Premix 1 BAG IVPB SCH (12:51)
[2023-07-08] MEDS: Hydroxyurea 500 MG CAP PO SCH (12:52)
[2023-07-08 14:46] LABS: Legionella Urinary Ag Negative (Negative); Strep pneumo Urine Ag NEGATIVE (NEGATIVE)
[2023-07-09 04:10] LABS: #Eosinphils 0.3 10x3/uL (0.0-0.5); #Monocytes 0.8 10x3/uL (0.0-1.1); #Neutrophils 5.6 10x3/uL (1.5-8.4); %Basophils 0.4 % (0.0-2.0); %Eosinophils 2.6 % (0.0-6.0); %Lymphocytes 35.6 % (18.0-47.0); %Monocytes 7.7 % (0.0-10.0); %Neutrophils 53.4 % (40.0-75.0); Hematocrit 25.4 % (38.8-50.0); Hemoglobin 9.2 g/dL (13.5-17.5); Mean Corpuscular HGB CONC 36.2 g/dL (32.0-36.0); Mean Corpuscular Hemoglobin 33.2 pg (27.0-33.0); Mean Corpuscular Volume 91.7 fl (81.2-95.1); Mean Platelet Volume 9.5 fl (7.4-10.4); Platelet Count 448 10x3/uL (150-450); RBC Distribution Width 20.3 % (11.5-14.5); Red Blood Cell (RBC) Count 2.77 10x6/uL (4.32-5.72); White Blood Cell (WBC) Count 10.4 10x3/uL (3.5-10.5)
[2023-07-09] MEDS: VANCOMYCIN 1.25 GM/250 ML BAG 1.25 GM in Premix 1 BAG IVPB SCH (04:11)
[2023-07-09 04:15] LABS: Anion Gap 15 mmol/L (10-20); BUN (Urea Nitrogen) 10 mg/dL (8.9-20.6); Calc. Creatinine Clearance 154 mL/min (70-130); Calcium 8.6 mg/dL (7.8-10.44); Carbon Dioxide 22 mmol/L (22-29); Chloride 108 mmol/L (98-107); Estimated GFR 135; Glucose 89 mg/dL (70-105); Potassium 4.7 mmol/L (3.5-5.1); Sodium 140 mmol/L (136-145); Vancomycin, Trough 12.6 ug/mL
[2023-07-09] MEDS: Ketorolac Tromethamine 30 MG (1 mL) VIAL IVP PRN (04:32)
[2023-07-09 06:48] VITALS: TEMP 98.4
[2023-07-09 08:00] VITALS: BP 137/74
[2023-07-09] MEDS: Folic Acid 1 MG TAB PO SCH (08:44)
[2023-07-09] MEDS: Hydroxyurea 500 MG CAP PO SCH (08:48)
[2023-07-09] MEDS: PATIENT'S HOME MEDICATION PO SCH (08:49)
[2023-07-09] MEDS ORDERED: Enoxaparin 40 MG (0.4 mL) SYRINGE SC SCH (09:00)
[2023-07-09] MEDS: LevoFLOXacin 750 mg/D5W 750 MG in Premix 1 BAG IVPB SCH (10:36)
== END 2023-07-09 11:20 | disposition home or self-care (01) | DRG 811 ==
LOC: CSHERS 12:57 → CSHERHOLD 15:19 → CSHTELE 19:55 → OBSVTOIN 07-07 06:51
PROVIDERS: ADMIT Internal Medicine; ATTEND Internal Medicine
PROC: 30233N1 Transfusion of Nonautologous Red Blood Cells into Peripheral Vein, Percutaneous Approach (ICD-10-PCS; principal; 2023-07-08)
DX: D57.01 Hb-SS disease with acute chest syndrome (principal); J18.9 Pneumonia, unspecified organism; D57.00 Hb-SS disease with crisis, unspecified; D64.9 Anemia, unspecified; M25.551 Pain in right hip; M25.552 Pain in left hip; D72.829 Elevated white blood cell count, unspecified; D75.839 Thrombocytosis, unspecified; Z79.899 Other long term (current) drug therapy; R07.9 Chest pain, unspecified
CPT/HCPCS: 36415; 36430; 71045; 80048; 80053; 80202; 83605; 84145; 85025; 85046; 86140; 86850; 86900; 86901; 87040; 87081; 87449; 87899; 93005; 94760; 96361; 96372; 96374; 96375; 96376; G0378; J1170; J1650; J1885; J1956; J2270; J2405; J3010; J3370; J3490; J7042; P9016

== ENCOUNTER 2023-08-08 18:20 | Inpatient (IN) | payer BC ==
[2023-08-08 20:29] LABS: Hematocrit 26.2 % (38.8-50.0); Hemoglobin 9.3 g/dL (13.5-17.5); Mean Corpuscular HGB CONC 35.5 g/dL (32.0-36.0); Mean Corpuscular Volume 92.9 fl (81.2-95.1); Platelet Count 426 10x3/uL (150-450); RBC Distribution Width 19.7 % (11.5-14.5); Red Blood Cell (RBC) Count 2.82 10x6/uL (4.32-5.72); White Blood Cell (WBC) Count 13.2 10x3/uL (3.5-10.5)
[2023-08-08] MEDS ORDERED: fentaNYL 50 mcg/mL 1 mL Vial ONE (20:37)
[2023-08-08 20:44] LABS: ALT (SGPT) 7 U/L (8-55); AST (SGOT) 20 U/L (5-34); Albumin 4.3 g/dL (3.5-5.0); Alkaline Phosphatase 89 U/L (50-130); Anion Gap 12 mmol/L (10-20); BUN (Urea Nitrogen) 8 mg/dL (8.9-20.6); Bilirubin, Total 1.4 mg/dL (0.2-1.2); Calc. Creatinine Clearance 0 mL/min (70-130); Calcium 8.6 mg/dL (7.8-10.44); Carbon Dioxide 25 mmol/L (22-29); Chloride 106 mmol/L (98-107); Estimated GFR 136; Glucose 94 mg/dL (70-105); Potassium 3.6 mmol/L (3.5-5.1); Protein, Total 7.3 g/dL (6.0-8.3); Sodium 139 mmol/L (136-145)
[2023-08-08 20:47] LABS: Troponin I Less than 0.010 ng/mL (< 0.028)
[2023-08-08 20:58] LABS: MDiff Complete? YES
[2023-08-08 21:00] LABS: Eosinophils 2 % (0-10); Lymphocytes 44 % (28-48); Monocytes 6 % (0-4); Neutrophil 47 % (31-61)
[2023-08-08 21:01] LABS: Anisocytosis SLIGHT = 6-15 cells (100X) (0-5/hpf); Hypochromia SLIGHT = 6-15 cells (100X) (0-5/hpf); Ovalocytes SLIGHT = 2-5 cells (100X) (0-1/hpf); Poikilocytosis SLIGHT = 6-15 cells (100X) (0-5/hpf); Target Cells SLIGHT = 2-5 cells (100X) (0-1/hpf)
[2023-08-08 21:03] LABS: Large Platelets SLIGHT (None Seen); Platelet Adequacy Comment Appears Adequate
[2023-08-08 21:06] LABS: Sickle Cells SLIGHT = 1-5 cells (100X) (None Seen)
[2023-08-08 21:07] LABS: Elliptocytes SLIGHT = 2-5 cells (100X) (0-1/hpf); Microcytosis SLIGHT = 6-15 cells (100X) (0-5/hpf); Polychromasia MODERATE = 3-4 cells (100X) (0-2/hpf)
[2023-08-08] MEDS ORDERED: Ketorolac Tromethamine 30 MG (1 mL) VIAL ONE (22:23)
[2023-08-08] MEDS ORDERED: HYDROmorphone 0.5 MG/0.5 ML SYRINGE ONE (22:43)
[2023-08-09] MEDS ORDERED: Ondansetron ODT 4 MG TAB PO PRN (01:02)
[2023-08-09] MEDS ORDERED: Morphine 2 MG/ML VIAL SLOW IVP PRN (01:02)
[2023-08-09] MEDS ORDERED: Morphine 4 MG/ML VIAL ONE ×5 (01:18→16:34)
[2023-08-09] MEDS ORDERED: Ondansetron PF 4 MG/2 ML Vial ONE (01:18)
[2023-08-09] MEDS ORDERED: NS 0.9% w/ 20 MEQ KCL 1,000 ML ONE (01:18)
[2023-08-09] MEDS: Morphine 4 MG/ML VIAL SLOW IVP PRN (01:25)
[2023-08-09] MEDS: Ondansetron PF 4 MG/2 ML Vial IVP PRN (01:26)
[2023-08-09] MEDS: NS 0.9% w/ 20 MEQ KCL 1,000 ML/1,000 ML BAG IV SCH (01:30)
[2023-08-09] MEDS ORDERED: Ketorolac Tromethamine 30 MG (1 mL) VIAL ONE ×3 (02:01→16:34)
[2023-08-09] MEDS: Ketorolac Tromethamine 30 MG (1 mL) VIAL IVP PRN (02:05)
[2023-08-09] MEDS ORDERED: HYDROmorphone 0.5 MG/0.5 ML SYRINGE ONE (03:43)
[2023-08-09] MEDS: HYDROmorphone 0.5 MG/0.5 ML SYRINGE SLOW IVP SCH (03:50)
[2023-08-09 04:30] LABS: Hematocrit 26.4 % (38.8-50.0); Hemoglobin 9.3 g/dL (13.5-17.5); Mean Corpuscular HGB CONC 35.2 g/dL (32.0-36.0); Mean Corpuscular Volume 93.6 fl (81.2-95.1); Platelet Count 411 10x3/uL (150-450); RBC Distribution Width 19.6 % (11.5-14.5); Red Blood Cell (RBC) Count 2.82 10x6/uL (4.32-5.72); White Blood Cell (WBC) Count 17.2 10x3/uL (3.5-10.5)
[2023-08-09 04:35] LABS: MDiff Complete? YES
[2023-08-09 04:50] LABS: Anion Gap 12 mmol/L (10-20); BUN (Urea Nitrogen) 6 mg/dL (8.9-20.6); Calc. Creatinine Clearance 167 mL/min (70-130); Calcium 8.4 mg/dL (7.8-10.44); Carbon Dioxide 22 mmol/L (22-29); Chloride 109 mmol/L (98-107); Estimated GFR 138; Glucose 95 mg/dL (70-105); Magnesium 1.8 mg/dL (1.7-2.2); Potassium 3.7 mmol/L (3.5-5.1); Sodium 139 mmol/L (136-145)
[2023-08-09 04:56] LABS: Anisocytosis SLIGHT = 6-15 cells (100X) (0-5/hpf); Elliptocytes SLIGHT = 2-5 cells (100X) (0-1/hpf); Hypochromia SLIGHT = 6-15 cells (100X) (0-5/hpf); Microcytosis SLIGHT = 6-15 cells (100X) (0-5/hpf); Platelet Adequacy Comment Appears Adequate; Polychromasia SLIGHT = 2-3 cells (100X) (0-2/hpf)
[2023-08-09 04:57] LABS: Sickle Cells SLIGHT = 1-5 cells (100X) (None Seen)
[2023-08-09 04:59] LABS: Band 8 % (5-11); Eosinophils 2 % (0-10); Lymphocytes 38 % (28-48); Monocytes 9 % (0-4); Neutrophil 41 % (31-61); Reactive Lymphocytes 2 % (0-10)
[2023-08-09] MEDS ORDERED: fentaNYL 50 mcg/mL 1 mL Vial ONE (07:04)
[2023-08-09] MEDS: fentaNYL 50 mcg/mL 1 mL Vial SLOW IVP SCH (07:13)
[2023-08-09] MEDS ORDERED: Enoxaparin 40 MG (0.4 mL) SYRINGE ONE (09:05)
[2023-08-09] MEDS: Enoxaparin 40 MG (0.4 mL) SYRINGE SC SCH (09:17)
[2023-08-09] MEDS: Lactated Ringer's 1,000 ML IV SCH (09:38)
[2023-08-09 18:24] VITALS: BMI 21.5
[2023-08-10 14:17] VITALS: BP 135/66; TEMP 98.2
== END 2023-08-10 15:47 | disposition home or self-care (01) | DRG 812 ==
LOC: CSHERS 18:20 → OBSVTOIN 08-09 00:17 → CSHERHOLD 08-09 00:17 → CSHTELE 08-09 17:06
PROVIDERS: ADMIT Family Medicine; ATTEND Family Medicine
DX: D57.00 Hb-SS disease with crisis, unspecified (principal); Z79.899 Other long term (current) drug therapy; Z90.89 Acquired absence of other organs; F90.9 Attention-deficit hyperactivity disorder, unspecified type
CPT/HCPCS: 36415; 71045; 80048; 80053; 83735; 84484; 85025; 85046; 93005; 96361; 96374; 96375; J1170; J1650; J1885; J2270; J2405; J3010; J3480; J7120

== ENCOUNTER 2023-08-18 17:22 | Emergency (ER) | payer BC ==
[2023-08-18] MEDS ORDERED: HYDROmorphone 0.5 MG/0.5 ML SYRINGE ONE ×2 (17:48→19:41)
[2023-08-18] MEDS ORDERED: Ondansetron PF 4 MG/2 ML Vial ONE (17:48)
[2023-08-18] MEDS ORDERED: diphenhydrAMINE 50 MG/ML VIAL ONE (17:48)
[2023-08-18 18:46] LABS: #Basophils 0.1 10x3/uL (0.0-0.2); #Eosinphils 0.1 10x3/uL (0.0-0.5); #Monocytes 0.8 10x3/uL (0.0-1.1); #Neutrophils 7.6 10x3/uL (1.5-8.4); %Basophils 0.3 % (0.0-2.0); %Eosinophils 0.9 % (0.0-6.0); %Lymphocytes 43.6 % (18.0-47.0); %Monocytes 5.3 % (0.0-10.0); %Neutrophils 49.6 % (40.0-75.0); Hematocrit 29.5 % (38.8-50.0); Hemoglobin 10.4 g/dL (13.5-17.5); Mean Corpuscular HGB CONC 35.3 g/dL (32.0-36.0); Mean Corpuscular Hemoglobin 33.3 pg (27.0-33.0); Mean Corpuscular Volume 94.6 fl (81.2-95.1); Mean Platelet Volume 8.6 fl (7.4-10.4); Platelet Count 833 10x3/uL (150-450); RBC Distribution Width 20.7 % (11.5-14.5); Red Blood Cell (RBC) Count 3.12 10x6/uL (4.32-5.72); White Blood Cell (WBC) Count 15.4 10x3/uL (3.5-10.5)
[2023-08-18 19:08] LABS: ALT (SGPT) 7 U/L (8-55); AST (SGOT) 18 U/L (5-34); Albumin 4.6 g/dL (3.5-5.0); Alkaline Phosphatase 85 U/L (50-130); Anion Gap 14 mmol/L (10-20); BUN (Urea Nitrogen) 5 mg/dL (8.9-20.6); Bilirubin, Total 1.4 mg/dL (0.2-1.2); Calc. Creatinine Clearance 0 mL/min (70-130); Calcium 9.2 mg/dL (7.8-10.44); Carbon Dioxide 24 mmol/L (22-29); Chloride 106 mmol/L (98-107); Estimated GFR 130; Globulin 3.3 g/dL (2.4-3.5); Glucose 76 mg/dL (70-105); Potassium 3.7 mmol/L (3.5-5.1); Protein, Total 7.9 g/dL (6.0-8.3); Sodium 140 mmol/L (136-145)
== END 2023-08-18 20:26 | disposition home or self-care (01) ==
LOC: CSHERS 17:22
DX: D57.00 Hb-SS disease with crisis, unspecified (principal)
CPT/HCPCS: 80053; 85025; 85046; 96374; 96375; 96376; J1170; J1200; J2405

== ENCOUNTER 2023-12-15 21:51 | Emergency (ER) | payer SELFPAY ==
[2023-12-15] MEDS ORDERED: Morphine 4 MG/ML VIAL ONE ×2 (22:09→23:41)
[2023-12-15] MEDS ORDERED: Morphine 2 MG/ML VIAL ONE (22:10)
[2023-12-15] MEDS ORDERED: Ketorolac Tromethamine 30 MG (1 mL) VIAL ONE (22:10)
[2023-12-15] MEDS ORDERED: diphenhydrAMINE 50 MG/ML VIAL ONE (22:10)
[2023-12-15 22:34] LABS: Hematocrit 24.2 % (38.8-50.0); Mean Corpuscular HGB CONC 37.2 g/dL (32.0-36.0); Mean Corpuscular Hemoglobin 35.6 pg (27.0-33.0); Mean Corpuscular Volume 95.7 fL (81.2-95.1); Mean Platelet Volume 8.8 fL (7.4-10.4); Platelet Count 519 10x3/uL (150-450); RBC Distribution Width 16.4 % (11.5-14.5); Red Blood Cell (RBC) Count 2.53 10x6/uL (4.32-5.72); White Blood Cell (WBC) Count 16.8 10x3/uL (3.5-10.5)
[2023-12-15 22:42] LABS: ALT (SGPT) 14 U/L (8-55); AST (SGOT) 31 U/L (5-34); Albumin 4.3 g/dL (3.5-5.0); Alkaline Phosphatase 73 U/L (50-130); Anion Gap 15 mmol/L (10-20); BUN (Urea Nitrogen) 11 mg/dL (8.9-20.6); Bilirubin, Total 1.5 mg/dL (0.2-1.2); Calc. Creatinine Clearance 0 mL/min (70-130); Calcium 8.9 mg/dL (7.8-10.44); Carbon Dioxide 21 mmol/L (22-29); Chloride 105 mmol/L (98-107); Estimated GFR 125; Globulin 3.3 g/dL (2.4-3.5); Glucose 116 mg/dL (70-105); Lipase 25 U/L (8-78); Potassium 4.2 mmol/L (3.5-5.1); Protein, Total 7.6 g/dL (6.0-8.3); Sodium 137 mmol/L (136-145)
[2023-12-15 22:54] LABS: MDiff Complete? YES
[2023-12-15 23:26] LABS: Band 1 % (5-11); Eosinophils 2 % (0-10); Lymphocytes 56 % (28-48); Monocytes 11 % (0-4); Neutrophil 26 % (31-61); Reactive Lymphocytes 2 % (0-10)
[2023-12-15 23:34] LABS: Anisocytosis SLIGHT = 6-15 cells (100X) (0-5/hpf); Macrocytosis SLIGHT = 6-15 cells (100X) (0-5/hpf); Poikilocytosis SLIGHT = 6-15 cells (100X) (0-5/hpf)
[2023-12-15 23:35] LABS: Elliptocytes SLIGHT = 2-5 cells (100X) (0-1/hpf); Large Platelets SLIGHT (None Seen); Ovalocytes SLIGHT = 2-5 cells (100X) (0-1/hpf); Platelet Adequacy Comment Appears Increased; Polychromasia MODERATE = 3-4 cells (100X) (0-2/hpf); Sickle Cells SLIGHT = 1-5 cells (100X) (None Seen); Target Cells SLIGHT = 2-5 cells (100X) (0-1/hpf); Tear Drops SLIGHT = 2-5 cells (100X) (0-1/hpf)
== END 2023-12-16 01:08 | disposition home or self-care (01) ==
LOC: CSHERS 21:51
DX: D57.00 Hb-SS disease with crisis, unspecified (principal)
CPT/HCPCS: 71045; 80053; 83605; 83690; 85025; 85046; 96361; 96374; 96375; 96376; J1200; J1885; J2270; J2272

== ENCOUNTER 2023-12-16 07:43 | Emergency (ER) | payer SELFPAY | END 2023-12-16 10:50 | disposition home or self-care (01) | LOC: CSHERS 07:43 | DX: D57.00 Hb-SS disease with crisis, unspecified (principal) | CPT/HCPCS: 96361; 96374; 96375; 96376; J1170; J1885; J2270; J2272; J2405 ==

== ENCOUNTER 2024-01-04 22:21 | Inpatient (IN) | payer SELFPAY ==
[2024-01-04] MEDS ORDERED: HYDROmorphone 0.5 MG/0.5 ML SYRINGE ONE ×2 (22:41→23:39)
[2024-01-04] MEDS ORDERED: Ondansetron PF 4 MG/2 ML Vial ONE (22:42)
[2024-01-04 23:01] LABS: Anion Gap 14 mmol/L (10-20); BUN (Urea Nitrogen) 9 mg/dL (8.9-20.6); Calc. Creatinine Clearance 0 mL/min (70-130); Calcium 9.5 mg/dL (7.8-10.44); Carbon Dioxide 22 mmol/L (22-29); Chloride 106 mmol/L (98-107); Estimated GFR 127; Glucose 120 mg/dL (70-105); Potassium 3.9 mmol/L (3.5-5.1); Sodium 138 mmol/L (136-145)
[2024-01-04 23:03] LABS: Hematocrit 24.7 % (38.8-50.0); Hemoglobin 8.6 g/dL (13.5-17.5); Mean Corpuscular HGB CONC 34.8 g/dL (32.0-36.0); Mean Corpuscular Hemoglobin 32.3 pg (27.0-33.0); Mean Corpuscular Volume 92.9 fL (81.2-95.1); Mean Platelet Volume 8.9 fL (7.4-10.4); Platelet Count 636 10x3/uL (150-450); RBC Distribution Width 18.6 % (11.5-14.5); Red Blood Cell (RBC) Count 2.66 10x6/uL (4.32-5.72); White Blood Cell (WBC) Count 18.4 10x3/uL (3.5-10.5)
[2024-01-04 23:37] LABS: MDiff Complete? YES
[2024-01-05 00:15] LABS: Band 2 % (5-11); Eosinophils 1 % (0-10); Lymphocytes 75 % (28-48); Metamyelocyte 1 % (0-0); Monocytes 3 % (0-4); Myelocyte 1 % (0-0); Neutrophil 15 % (31-61); Nucleated RBC (Manual Ct) 1 % (0); Reactive Lymphocytes 2 % (0-10)
[2024-01-05 00:19] LABS: Anisocytosis SLIGHT = 6-15 cells (100X) (0-5/hpf); Elliptocytes SLIGHT = 2-5 cells (100X) (0-1/hpf); Hypochromia SLIGHT = 6-15 cells (100X) (0-5/hpf); Macrocytosis SLIGHT = 6-15 cells (100X) (0-5/hpf); Ovalocytes SLIGHT = 2-5 cells (100X) (0-1/hpf); Poikilocytosis SLIGHT = 6-15 cells (100X) (0-5/hpf); Polychromasia SLIGHT = 2-3 cells (100X) (0-2/hpf); Target Cells SLIGHT = 2-5 cells (100X) (0-1/hpf); Tear Drops SLIGHT = 2-5 cells (100X) (0-1/hpf)
[2024-01-05 00:20] LABS: Platelet Adequacy Comment Appears Increased; Toxic Granulation SLIGHT
[2024-01-05] MEDS ORDERED: HYDROmorphone 0.5 MG/0.5 ML SYRINGE ONE (01:31)
[2024-01-05] MEDS ORDERED: Ketorolac Tromethamine 30 MG (1 mL) VIAL ONE (02:06)
[2024-01-05] MEDS ORDERED: Calcium Carbonate 500 MG ChewTAB PO PRN (02:16)
[2024-01-05] MEDS ORDERED: Senokot S 8.6-50 MG TAB PO PRN (02:16)
[2024-01-05] MEDS ORDERED: Ondansetron ODT 4 MG TAB PO PRN (02:16)
[2024-01-05] MEDS: Lactated Ringer's 1,000 ML IV SCH (03:45)
[2024-01-05] MEDS: fentaNYL 50 mcg/mL 1 mL Vial SLOW IVP PRN (03:46)
[2024-01-05 04:08] VITALS: BMI 23.0
[2024-01-05] MEDS: oxyCODONE 5 MG TAB PO PRN (04:19)
[2024-01-05 04:28] LABS: Magnesium 1.9 mg/dL (1.7-2.2)
[2024-01-05] MEDS: HYDROmorphone 0.5 MG/0.5 ML SYRINGE SLOW IVP SCH ×2 (04:57→06:25)
[2024-01-05 06:29] LABS: Hematocrit 25.7 % (38.8-50.0); Hemoglobin 9.1 g/dL (13.5-17.5); Mean Corpuscular HGB CONC 35.4 g/dL (32.0-36.0); Mean Corpuscular Hemoglobin 32.6 pg (27.0-33.0); Mean Corpuscular Volume 92.1 fL (81.2-95.1); Mean Platelet Volume 8.9 fL (7.4-10.4); Platelet Count 606 10x3/uL (150-450); Red Blood Cell (RBC) Count 2.79 10x6/uL (4.32-5.72); White Blood Cell (WBC) Count 18.5 10x3/uL (3.5-10.5)
[2024-01-05 06:37] LABS: Anion Gap 13 mmol/L (10-20); BUN (Urea Nitrogen) 8 mg/dL (8.9-20.6); Calc. Creatinine Clearance 157 mL/min (70-130); Carbon Dioxide 23 mmol/L (22-29); Chloride 107 mmol/L (98-107); Estimated GFR 132; Glucose 106 mg/dL (70-105); Potassium 3.9 mmol/L (3.5-5.1); Sodium 139 mmol/L (136-145)
[2024-01-05] MEDS: Ondansetron PF 4 MG/2 ML Vial IVP PRN (06:37)
[2024-01-05 06:42] LABS: MDiff Complete? YES
[2024-01-05 06:44] LABS: Troponin I Less than 0.010 ng/mL (< 0.028)
[2024-01-05 06:56] LABS: Band 3 % (5-11); Eosinophils 1 % (0-10); Lymphocytes 44 % (28-48); Monocytes 4 % (0-4); Myelocyte 1 % (0-0); Neutrophil 47 % (31-61); Nucleated RBC (Manual Ct) 1 % (0)
[2024-01-05 06:57] LABS: Anisocytosis SLIGHT = 6-15 cells (100X) (0-5/hpf); Poikilocytosis SLIGHT = 6-15 cells (100X) (0-5/hpf)
[2024-01-05 06:58] LABS: Hypochromia SLIGHT = 6-15 cells (100X) (0-5/hpf); Macrocytosis SLIGHT = 6-15 cells (100X) (0-5/hpf); Polychromasia SLIGHT = 2-3 cells (100X) (0-2/hpf)
[2024-01-05 06:59] LABS: Platelet Adequacy Comment Appears Increased; Target Cells SLIGHT = 2-5 cells (100X) (0-1/hpf)
[2024-01-05 07:01] LABS: Ovalocytes SLIGHT = 2-5 cells (100X) (0-1/hpf); Toxic Granulation SLIGHT
[2024-01-05] MEDS: HYDROmorphone/PF 10 MG in Sodium Chloride 0.9% 49 ML IVPB PRN ×3 (07:50→15:34)
[2024-01-05] MEDS: Ketorolac Tromethamine 30 MG (1 mL) VIAL IVP SCH (10:02)
[2024-01-05] MEDS: Potassium Chloride 20 MEQ TAB PO SCH (10:03)
[2024-01-05] MEDS: Hydroxyurea 500 MG CAP PO SCH (10:04)
[2024-01-05] MEDS: Folic Acid 1 MG TAB PO SCH (10:04)
[2024-01-05] MEDS: Enoxaparin 40 MG (0.4 mL) SYRINGE SC SCH (10:05)
[2024-01-05] MEDS: Dextrose 5 %-0.45 % NaCl 1,000 ML IV SCH (10:07)
[2024-01-06 03:37] LABS: #Basophils 0.05 10x3/uL (0.0-0.2); #Eosinphils 0.06 10x3/uL (0.0-0.5); #Monocytes 1.42 10x3/uL (0.0-1.1); #Neutrophils 9.11 10x3/uL (1.5-8.4); %Basophils 0.4 % (0.0-2.0); %Eosinophils 0.4 % (0.0-6.0); %Lymphocytes 21.4 % (18.0-47.0); %Monocytes 10.3 % (0.0-10.0); %Neutrophils 66.3 % (40.0-75.0); Hematocrit 22.2 % (38.8-50.0); Hemoglobin 8.2 g/dL (13.5-17.5); Mean Corpuscular HGB CONC 36.9 g/dL (32.0-36.0); Mean Corpuscular Hemoglobin 33.2 pg (27.0-33.0); Mean Corpuscular Volume 89.9 fL (81.2-95.1); Mean Platelet Volume 8.7 fL (7.4-10.4); Platelet Count 505 10x3/uL (150-450); RBC Distribution Width 18.8 % (11.5-14.5); Red Blood Cell (RBC) Count 2.47 10x6/uL (4.32-5.72); White Blood Cell (WBC) Count 13.8 10x3/uL (3.5-10.5)
[2024-01-06 03:45] LABS: Anion Gap 12 mmol/L (10-20); BUN (Urea Nitrogen) 5 mg/dL (8.9-20.6); Calc. Creatinine Clearance 164 mL/min (70-130); Calcium 8.7 mg/dL (7.8-10.44); Carbon Dioxide 21 mmol/L (22-29); Chloride 102 mmol/L (98-107); Estimated GFR 134; Glucose 121 mg/dL (70-105); Potassium 3.4 mmol/L (3.5-5.1); Sodium 132 mmol/L (136-145)
[2024-01-06] MEDS ORDERED: HYDROmorphone/PF 10 MG in Sodium Chloride 0.9% 49 ML IVPB PRN ×2 (07:29→07:56)
[2024-01-06] MEDS ORDERED: Vancomycin 1.5 GM in Sodium Chloride 0.9% 250 ML 300 ML IVPB SCH (09:00)
[2024-01-06] MEDS: Potassium Chloride 20 MEQ TAB PO SCH (09:54)
[2024-01-06] MEDS: Acetaminophen 500 MG TAB PO SCH (09:54)
[2024-01-06] MEDS: Cefepime 2 GM in Sodium Chloride 0.9% 100 ML IVPB SCH (09:55)
[2024-01-06] MEDS: VANCOMYCIN 1.75 GM/350 ML BAG 1.75 GM in Premix 1 BAG IVPB SCH (09:56)
[2024-01-06] MEDS: oxyCODONE 5 MG TAB PO PRN (10:10)
[2024-01-06] MEDS: VANCOMYCIN 1.25 GM/250 ML BAG 1.25 GM in Premix 1 BAG IVPB SCH (17:30)
[2024-01-06 17:59] VITALS: BP 117/55
[2024-01-06 19:16] VITALS: TEMP 103
== END 2024-01-06 21:10 | disposition still patient (30) | DRG 871 ==
LOC: CSHERS 22:21 → CSHTELE 01-05 02:56 → OBSVTOIN 01-05 08:59 → CSHTELE 01-06 16:11
PROVIDERS: ADMIT Family Medicine; ATTEND Hospitalist
DX: A41.9 Sepsis, unspecified organism (principal); D57.00 Hb-SS disease with crisis, unspecified; D72.829 Elevated white blood cell count, unspecified; F12.90 Cannabis use, unspecified, uncomplicated; Z79.2 Long term (current) use of antibiotics; Z79.899 Other long term (current) drug therapy; Z90.89 Acquired absence of other organs
CPT/HCPCS: 36415; 71045; 80048; 83735; 84484; 85025; 85046; 87040; 93005; 93010; 96361; 96374; 96375; 96376; G0378; J0692; J1170; J1650; J1885; J2405; J3010; J3370; J3490; J7042; J7120

== ENCOUNTER 2024-03-29 07:15 | Emergency (ER) | payer OTHER, SELFPAY ==
[2024-03-29] MEDS ORDERED: HYDROmorphone 0.5 MG/0.5 ML SYRINGE ONE ×3 (07:53→11:30)
[2024-03-29] MEDS ORDERED: Ondansetron PF 4 MG/2 ML Vial ONE (07:53)
[2024-03-29 07:59] LABS: Hemoglobin 8.5 g/dL (13.5-17.5); MDiff Complete? YES; Mean Corpuscular HGB CONC 35.4 g/dL (32.0-36.0); Mean Corpuscular Volume 90.2 fL (81.2-95.1); Mean Platelet Volume 8.6 fL (7.4-10.4); Platelet Count 469 10x3/uL (150-450); RBC Distribution Width 21.2 % (11.5-14.5); Red Blood Cell (RBC) Count 2.66 10x6/uL (4.32-5.72)
[2024-03-29 08:17] LABS: ALT (SGPT) 10 U/L (8-55); AST (SGOT) 33 U/L (5-34); Albumin 4.6 g/dL (3.5-5.0); Alkaline Phosphatase 89 U/L (50-130); Anion Gap 17 mmol/L (10-20); BUN (Urea Nitrogen) 12 mg/dL (8.9-20.6); Bilirubin, Total 1.4 mg/dL (0.2-1.2); Calc. Creatinine Clearance 0 mL/min (70-130); Carbon Dioxide 21 mmol/L (22-29); Chloride 105 mmol/L (98-107); Estimated GFR 129; Globulin 3.5 g/dL (2.4-3.5); Glucose 91 mg/dL (70-105); Lipase 14 U/L (8-78); Protein, Total 8.1 g/dL (6.0-8.3); Sodium 139 mmol/L (136-145)
[2024-03-29 08:24] LABS: Lymphocytes 26 % (28-48); Monocytes 6 % (0-4); Neutrophil 66 % (31-61); Reactive Lymphocytes 2 % (0-10)
[2024-03-29 08:32] LABS: Anisocytosis SLIGHT = 6-15 cells (100X) (0-5/hpf); Giant Platelets SLIGHT HPF (0-5); Hypochromia SLIGHT = 6-15 cells (100X) (0-5/hpf); Macrocytosis SLIGHT = 6-15 cells (100X) (0-5/hpf); Platelet Adequacy Comment Appears Increased; Poikilocytosis SLIGHT = 6-15 cells (100X) (0-5/hpf); Polychromasia SLIGHT = 2-3 cells (100X) (0-2/hpf); Sickle Cells SLIGHT = 1-5 cells (100X) (None Seen)
[2024-03-29] MEDS ORDERED: Ketorolac Tromethamine 30 MG (1 mL) VIAL ONE (11:50)
== END 2024-03-29 12:27 | disposition home or self-care (01) ==
LOC: CSHERS 07:15
DX: D57.219 Sickle-cell/Hb-C disease with crisis, unspecified (principal)
CPT/HCPCS: 71045; 80053; 83690; 85025; 85046; 93005; 93010; 96374; 96375; 96376; J1170; J1885; J2405

== ENCOUNTER 2024-03-29 19:19 | Emergency (ER) | payer SELFPAY ==
[2024-03-29] MEDS ORDERED: HYDROmorphone 0.5 MG/0.5 ML SYRINGE ONE (19:45)
[2024-03-29] MEDS ORDERED: Ondansetron PF 4 MG/2 ML Vial ONE (19:45)
[2024-03-29] MEDS ORDERED: Ketorolac Tromethamine 30 MG (1 mL) VIAL ONE (19:45)
[2024-03-29 20:49] LABS: Hematocrit 21.4 % (38.8-50.0); Hemoglobin 7.8 g/dL (13.5-17.5); Mean Corpuscular HGB CONC 36.4 g/dL (32.0-36.0); Mean Corpuscular Hemoglobin 32.2 pg (27.0-33.0); Mean Corpuscular Volume 88.4 fL (81.2-95.1); Mean Platelet Volume 8.8 fL (7.4-10.4); RBC Distribution Width 22.1 % (11.5-14.5); Red Blood Cell (RBC) Count 2.42 10x6/uL (4.32-5.72); White Blood Cell (WBC) Count 16.5 10x3/uL (3.5-10.5)
[2024-03-29 20:50] LABS: Platelet Count 474 10x3/uL (150-450)
[2024-03-29 20:54] LABS: ALT (SGPT) 8 U/L (8-55); AST (SGOT) 31 U/L (5-34); Albumin 4.2 g/dL (3.5-5.0); Alkaline Phosphatase 85 U/L (50-130); Anion Gap 15 mmol/L (10-20); BUN (Urea Nitrogen) 9 mg/dL (8.9-20.6); Bilirubin, Total 1.8 mg/dL (0.2-1.2); Calc. Creatinine Clearance 0 mL/min (70-130); Calcium 9.2 mg/dL (7.8-10.44); Carbon Dioxide 21 mmol/L (22-29); Chloride 105 mmol/L (98-107); Estimated GFR 130; Globulin 3.3 g/dL (2.4-3.5); Glucose 88 mg/dL (70-105); Potassium 3.8 mmol/L (3.5-5.1); Protein, Total 7.5 g/dL (6.0-8.3); Sodium 137 mmol/L (136-145)
[2024-03-29 21:23] LABS: MDiff Complete? YES
[2024-03-29 21:25] LABS: Eosinophils 1 % (0-10); Lymphocytes 29 % (28-48); Monocytes 5 % (0-4); Neutrophil 65 % (31-61); Nucleated RBC (Manual Ct) 2 % (0)
[2024-03-29 21:26] LABS: Anisocytosis MODERATE=16-30 cells (100X) (0-5/hpf)
[2024-03-29 21:27] LABS: Hypochromia MODERATE=16-30 cells (100X) (0-5/hpf); Macrocytosis SLIGHT = 6-15 cells (100X) (0-5/hpf); Microcytosis MODERATE=15-30 cells (100X) (0-5/hpf); Poikilocytosis MODERATE=16-30 cells (100X) (0-5/hpf); Polychromasia MARKED = >4 cells (100X) (0-2/hpf)
[2024-03-29 21:29] LABS: Howell Jolly Bodies SLIGHT = 1-2 cells (100X) (None Seen); Pappenheimer Bodies SLIGHT = 1-2 cells (100X) (None Seen); Target Cells SLIGHT = 2-5 cells (100X) (0-1/hpf)
[2024-03-29 21:30] LABS: Elliptocytes SLIGHT = 2-5 cells (100X) (0-1/hpf); Sickle Cells MODERATE= 6-15 cells (100X) (None Seen)
[2024-03-29 21:31] LABS: Platelet Adequacy Comment Platelets Increased; Schistocytes SLIGHT = 2-5 cells (100X) (0-1/hpf)
[2024-03-29 21:33] LABS: Large Platelets SLIGHT (None Seen)
== END 2024-03-29 23:58 | disposition home or self-care (01) ==
LOC: CSHERS 19:19
DX: D57.00 Hb-SS disease with crisis, unspecified (principal)
CPT/HCPCS: 71045; 83615; 85046; 93005; 96374; 96375; J1170; J1885; J2405

== ENCOUNTER 2024-06-13 19:57 | Emergency (ER) | payer SELFPAY ==
[2024-06-13] MEDS ORDERED: cefTRIAXone (ROCEPHIN) 500 MG VIAL ONE (21:58)
[2024-06-13] MEDS ORDERED: Bicillin LA 2.4 MILL.UNITS/4 ML SYRINGE IM SCH (22:00)
[2024-06-15 00:57] LABS: Chlam.trachomatis by PCR,Urine Not Detected (NotDetected); GC N.gonorrhoeae PCR,UrineVOID Not Detected (NotDetected)
== END 2024-06-13 22:07 | disposition home or self-care (01) ==
LOC: CSHERS 19:57
DX: J18.9 Pneumonia, unspecified organism (principal); Z20.2 Contact with and (suspected) exposure to infections with a predominantly sexual mode of transmission
CPT/HCPCS: 71046; 87428; 87491; 87591; 96372; J0561; J0696

== ENCOUNTER 2024-07-17 00:35 | Emergency (ER) | payer BC, OTHER, SELFPAY ==
[2024-07-17] MEDS ORDERED: Ketorolac Tromethamine 30 MG (1 mL) VIAL ONE (00:46)
[2024-07-17 01:20] LABS: Hematocrit 24.9 % (38.8-50.0); Hemoglobin 8.7 g/dL (13.5-17.5); Mean Corpuscular HGB CONC 34.9 g/dL (32.0-36.0); Mean Corpuscular Hemoglobin 33.1 pg (27.0-33.0); Mean Corpuscular Volume 94.7 fL (81.2-95.1); Mean Platelet Volume 9.1 fL (7.4-10.4); Platelet Count 421 10x3/uL (150-450); RBC Distribution Width 20.9 % (11.5-14.5); Red Blood Cell (RBC) Count 2.63 10x6/uL (4.32-5.72)
[2024-07-17 01:31] LABS: ALT (SGPT) 11 U/L (Less than 45); AST (SGOT) 42 U/L (11-34); Albumin 4.6 g/dL (3.1-4.5); Alkaline Phosphatase 66 U/L (40-110); Anion Gap 12 mmol/L (10-20); BUN (Urea Nitrogen) 16 mg/dL (8.9-20.6); Bilirubin, Total 1.6 mg/dL (0.3-1.2); Calc. Creatinine Clearance 0 mL/min (70-130); Calcium 9.2 mg/dL (7.8-10.44); Carbon Dioxide 21 mmol/L (22-29); Chloride 106 mmol/L (98-107); Estimated GFR 133; Globulin 4.1 g/dL (2.4-3.5); Glucose 89 mg/dL (70-105); Potassium 4.2 mmol/L (3.5-5.1); Protein, Total 8.7 g/dL (6.0-8.3); Sodium 135 mmol/L (136-145)
[2024-07-17 01:47] LABS: Anisocytosis MODERATE=16-30 cells (100X) (0-5/hpf); Band 7 % (5-11); Lymphocytes 42 % (21-51); MDiff Complete? YES; Monocytes 9 % (0-10); Neutrophil 31 % (42-75); Nucleated RBC (Manual Ct) 4 % (0); Ovalocytes MODERATE= 6-15 cells (100X) (0-1/hpf); Platelet Adequacy Comment Appears Adequate; Poikilocytosis MODERATE=16-30 cells (100X) (0-5/hpf); Polychromasia MODERATE = 3-4 cells (100X) (0-2/hpf); Reactive Lymphocytes 11 % (0-10); Sickle Cells MODERATE= 6-15 cells (100X) (None Seen); Target Cells SLIGHT = 2-5 cells (100X) (0-1/hpf)
[2024-07-17] MEDS ORDERED: HYDROmorphone 0.5 MG/0.5 ML SYRINGE ONE (02:35)
[2024-07-17 02:44] LABS: Bilirubin Neg (Negative); Blood, Urine Negative (Negative); Clarity Clear (Clear); Glucose, Urine (Dipstick) Normal (Negative); Ketone, Urine Negative (Negative); Leukocyte Negative (Negative); Nitrite Negative (Negative); Protein, Urine (Dipstick) Negative (Neg-Trace); Urobilinogen Normal mg/dL (Less than 2)
[2024-07-17 03:06] LABS: Bacteria/HPF Rare-Few HPF (None Seen); CAUTI Indications for Culture Pelvic or flank pain; RBC/HPF 0-3 HPF (0-3); Squamous Epithelial 0-3 HPF (0-3); WBC/HPF 0-3 HPF (0-3)
[2024-07-17 03:07] LABS: Urine Culture Reflex No No
== END 2024-07-17 04:09 | disposition home or self-care (01) ==
LOC: CSHERS 00:35
DX: M54.50 Low back pain, unspecified (principal)
CPT/HCPCS: 80053; 81001; 85025; 87428; 96361; 96374; 96375; J1171; J1885

== ENCOUNTER 2024-07-25 01:17 | Emergency (ER) | payer BC, OTHER, SELFPAY ==
[2024-07-25] MEDS ORDERED: Ondansetron PF 4 MG/2 ML Vial ONE (01:34)
[2024-07-25] MEDS ORDERED: HYDROmorphone 0.5 MG/0.5 ML SYRINGE ONE ×2 (01:34→02:05)
[2024-07-25 02:12] LABS: Hematocrit 21.8 % (38.8-50.0); Hemoglobin 7.8 g/dL (13.5-17.5); Mean Corpuscular HGB CONC 35.8 g/dL (32.0-36.0); Mean Corpuscular Hemoglobin 33.1 pg (27.0-33.0); Mean Corpuscular Volume 92.4 fL (81.2-95.1); Mean Platelet Volume 9.1 fL (7.4-10.4); Platelet Count 468 10x3/uL (150-450); RBC Distribution Width 18.3 % (11.5-14.5); Red Blood Cell (RBC) Count 2.36 10x6/uL (4.32-5.72)
[2024-07-25 02:23] LABS: Anion Gap 12 mmol/L (10-20); BUN (Urea Nitrogen) 16 mg/dL (8.9-20.6); Calc. Creatinine Clearance 0 mL/min (70-130); Calcium 8.6 mg/dL (7.8-10.44); Carbon Dioxide 23 mmol/L (22-29); Chloride 107 mmol/L (98-107); Estimated GFR 133; Glucose 95 mg/dL (70-105); Potassium 4.2 mmol/L (3.5-5.1); Sodium 138 mmol/L (136-145)
[2024-07-25 02:49] LABS: Anisocytosis SLIGHT = 6-15 cells (100X) (0-5/hpf); Band 1 % (5-11); Eosinophils 2 % (0-10); Lymphocytes 46 % (21-51); MDiff Complete? YES; Metamyelocyte 1 % (0-0); Monocytes 3 % (0-10); Neutrophil 41 % (42-75); Ovalocytes MODERATE= 6-15 cells (100X) (0-1/hpf); Platelet Adequacy Comment Appears Increased; Poikilocytosis SLIGHT = 6-15 cells (100X) (0-5/hpf); Polychromasia MODERATE = 3-4 cells (100X) (0-2/hpf); Reactive Lymphocytes 6 % (0-10); Sickle Cells SLIGHT = 1-5 cells (100X) (None Seen); Target Cells SLIGHT = 2-5 cells (100X) (0-1/hpf)
== END 2024-07-25 03:44 | disposition home or self-care (01) ==
LOC: CSHERS 01:17
DX: D57.00 Hb-SS disease with crisis, unspecified (principal); Z79.899 Other long term (current) drug therapy
CPT/HCPCS: 36415; 80048; 85025; 85046; 96361; 96374; 96375; J1171; J2405

== ENCOUNTER 2024-08-06 00:56 | Observation (INO) | payer SELFPAY ==
[2024-08-06] MEDS ORDERED: HYDROmorphone 0.5 MG/0.5 ML SYRINGE ONE ×3 (01:04→03:39)
[2024-08-06] MEDS ORDERED: Ondansetron PF 4 MG/2 ML Vial ONE ×2 (01:04→04:51)
[2024-08-06 02:01] LABS: Anion Gap 14 mmol/L (10-20); BUN (Urea Nitrogen) 13 mg/dL (8.9-20.6); Calc. Creatinine Clearance 0 mL/min (70-130); Calcium 9.7 mg/dL (7.8-10.44); Carbon Dioxide 22 mmol/L (22-29); Chloride 104 mmol/L (98-107); Estimated GFR 134; Glucose 98 mg/dL (70-105); Hematocrit 24.5 % (38.8-50.0); Hemoglobin 8.5 g/dL (13.5-17.5); Mean Corpuscular HGB CONC 34.7 g/dL (32.0-36.0); Mean Corpuscular Hemoglobin 32.4 pg (27.0-33.0); Mean Corpuscular Volume 93.5 fL (81.2-95.1); Mean Platelet Volume 9.2 fL (7.4-10.4); Platelet Count 479 10x3/uL (150-450); Potassium 4.1 mmol/L (3.5-5.1); RBC Distribution Width 20.5 % (11.5-14.5); Red Blood Cell (RBC) Count 2.62 10x6/uL (4.32-5.72); Sodium 136 mmol/L (136-145); White Blood Cell (WBC) Count 23.95 10x3/uL (3.5-10.5)
[2024-08-06 02:14] LABS: Anisocytosis MODERATE=16-30 cells (100X) (0-5/hpf); Band 5 % (5-11); Lymphocytes 59 % (21-51); MDiff Complete? YES; Monocytes 5 % (0-10); Neutrophil 25 % (42-75); Nucleated RBC (Manual Ct) 3 % (0); Ovalocytes MODERATE= 6-15 cells (100X) (0-1/hpf); Platelet Adequacy Comment Appears Increased; Polychromasia MODERATE = 3-4 cells (100X) (0-2/hpf); Reactive Lymphocytes 6 % (0-10); Sickle Cells MODERATE= 6-15 cells (100X) (None Seen); Target Cells SLIGHT = 2-5 cells (100X) (0-1/hpf)
[2024-08-06] MEDS ORDERED: Ketorolac Tromethamine 30 MG (1 mL) VIAL ONE ×2 (03:09→04:34)
[2024-08-06] MEDS ORDERED: Acetaminophen 500 MG TAB ONE (06:04)
[2024-08-06] MEDS ORDERED: Ondansetron PF 4 MG/2 ML Vial IVP PRN ×2 (06:05→10:30)
[2024-08-06] MEDS ORDERED: Acetaminophen 325 MG TAB PO PRN (06:05)
[2024-08-06] MEDS ORDERED: Ondansetron ODT 4 MG TAB PO PRN (06:05)
[2024-08-06] MEDS ORDERED: Morphine 2 MG/ML VIAL SLOW IVP PRN (06:07)
[2024-08-06] MEDS ORDERED: Morphine 4 MG/ML VIAL SLOW IVP PRN (06:07)
[2024-08-06 06:53] LABS: Bilirubin Neg (Negative); Blood, Urine Negative (Negative); Glucose, Urine (Dipstick) Normal (Negative); Ketone, Urine Negative (Negative); Leukocyte Negative (Negative); Nitrite Negative (Negative); Protein, Urine (Dipstick) 15 mg/dl (Neg-Trace); Urobilinogen Normal mg/dL (Less than 2)
[2024-08-06 07:02] LABS: Clarity Clear (Clear)
[2024-08-06] MEDS: Sodium Chloride 0.9% 1,000 ML IV SCH (07:10)
[2024-08-06] MEDS: HYDROmorphone 0.5 MG/0.5 ML SYRINGE SLOW IVP SCH ×2 (07:12→09:44)
[2024-08-06 07:49] LABS: Bacteria/HPF Rare-Few HPF (None Seen); CAUTI Indications for Culture Pelvic or flank pain; RBC/HPF 0-3 HPF (0-3); Squamous Epithelial None Seen HPF (0-3); WBC/HPF 0-3 HPF (0-3)
[2024-08-06 07:50] LABS: Urine Culture Reflex No No
[2024-08-06 08:40] VITALS: BMI 22.4
[2024-08-06] MEDS: Enoxaparin 40 MG (0.4 mL) SYRINGE SC SCH (08:45)
[2024-08-06] MEDS: cefTRIAXone\\ROCEPHIN 2 GM in Sodium Chloride 0.9% 100 ML IVPB SCH (08:45)
[2024-08-06] MEDS ORDERED: HYDROXYUREA 300 MG PO SCH (09:00)
[2024-08-06] MEDS: HYDROcodone/Acetaminophen 10/325 mg Tablet PO PRN (09:13)
[2024-08-06] MEDS: Folic Acid 1 MG TAB PO SCH (09:14)
[2024-08-06] MEDS ORDERED: diphenhydrAMINE 50 MG/ML VIAL IVP PRN (10:30)
[2024-08-06] MEDS ORDERED: diphenhydrAMINE 25 MG CAP PO PRN (10:30)
[2024-08-06] MEDS ORDERED: diphenhydrAMINE 50 MG/ML VIAL IM PRN (10:30)
[2024-08-06] MEDS ORDERED: Communication Order-Pharmacy FS SCH (10:30)
[2024-08-06] MEDS ORDERED: Naloxone HCl 0.4 mg/ml Vial IV PRN (10:30)
[2024-08-06] MEDS ORDERED: Promethazine HCl 25 MG/ML VIAL IM PRN (10:30)
[2024-08-06] MEDS: FENTANYL 500 MCG/10 ML VIAL 1,000 MCG, Admixture Fee 1 EACH in Sodium Chloride 0.9% 30 ML IV PRN (11:47)
[2024-08-06] MEDS ORDERED: HYDROmorphone 0.5 MG/0.5 ML SYRINGE SLOW IVP SCH (12:00)
[2024-08-06] MEDS: Ketorolac Tromethamine 30 MG (1 mL) VIAL IVP PRN (14:19)
[2024-08-06] MEDS: Hydroxyurea 500 MG CAP PO SCH (14:52)
[2024-08-06 15:54] VITALS: TEMP 98.2
[2024-08-06 16:39] VITALS: BP 140/63
[2024-08-06] MEDS: Morphine 2 MG/ML VIAL SLOW IVP SCH (17:10)
[2024-08-07] MEDS ORDERED: Hydroxyurea 500 MG CAP PO SCH (09:00)
== END 2024-08-06 17:31 | disposition short-term general hospital (02) ==
LOC: CSHERS 00:56 → SUATTDRO 00:56 → CSHTELE 06:07
PROVIDERS: ADMIT Family Medicine; ATTEND Hospitalist
DX: D57.00 Hb-SS disease with crisis, unspecified (principal); D72.829 Elevated white blood cell count, unspecified; J18.9 Pneumonia, unspecified organism; Z90.89 Acquired absence of other organs
CPT/HCPCS: 36415; 71045; 80048; 81001; 85025; 87040; 96361; 96374; 96375; 96376; G0378; J0696; J1171; J1885; J2272; J2405; J3010; J7030

== ENCOUNTER 2025-03-06 18:13 | Emergency (ER) | payer OTHER ==
[2025-03-06] MEDS ORDERED: Ketorolac Tromethamine 30 MG (1 mL) VIAL ONE (18:45)
[2025-03-06] MEDS ORDERED: HYDROmorphone 0.5 MG/0.5 ML SYRINGE ONE (18:57)
[2025-03-06 18:58] LABS: #Basophils 0.05 10x3/uL (0.0-0.2); #Eosinophils 0.16 10x3/uL (0.0-0.5); #Monocytes 1.24 10x3/uL (0.0-1.1); #Neutrophils 4.10 10x3/uL (1.5-8.4); %Basophils 0.4 % (0.0-2.0); %Eosinophils 1.4 % (0.0-6.0); %Lymphocytes 50.0 % (18.0-47.0); %Monocytes 11.1 % (0.0-10.0); %Neutrophils 36.8 % (40.0-75.0); Hematocrit 25.8 % (38.8-50.0); Hemoglobin 9.5 g/dL (13.5-17.5); Mean Corpuscular Hemoglobin 36.4 pg (27.0-33.0); Mean Corpuscular Volume 98.9 fL (81.2-95.1); Platelet Count 481 10x3/uL (150-450); Red Blood Cell (RBC) Count 2.61 10x6/uL (4.32-5.72); White Blood Cell (WBC) Count 11.17 10x3/uL (3.5-10.5)
[2025-03-06 19:13] LABS: ALT (SGPT) Less than 7 U/L (Less than 45); AST (SGOT) 42 U/L (11-34); Albumin 4.7 g/dL (3.1-4.5); Alkaline Phosphatase 78 U/L (40-110); Anion Gap 11 mmol/L (10-20); BUN (Urea Nitrogen) 7 mg/dL (8.9-20.6); Bilirubin, Total 2.0 mg/dL (0.3-1.2); Calc. Creatinine Clearance 0 mL/min (70-130); Calcium 8.9 mg/dL (7.8-10.44); Carbon Dioxide 25 mmol/L (22-29); Chloride 104 mmol/L (98-107); Globulin 3.1 g/dL (2.4-3.5); Glucose 90 mg/dL (70-105); Potassium 3.8 mmol/L (3.5-5.1); Sodium 136 mmol/L (136-145)
== END 2025-03-06 20:55 | disposition home or self-care (01) ==
LOC: CSHERS 18:13
DX: D57.00 Hb-SS disease with crisis, unspecified (principal); Z21 Asymptomatic human immunodeficiency virus [HIV] infection status; Z55.6 Problems related to health literacy
CPT/HCPCS: 80053; 85025; 85046; 86850; 86900; 86901; 96361; 96374; 96375; J1171; J1885